=== PATIENT | female | born 2000 | race African-American/Black ===

== ENCOUNTER 2024-03-17 14:01 | Emergency (ER) | payer MEDICAID, OTHER ==
[~2024-03-17] VITALS: Ht 162.6 cm; Wt 64.3 kg
[2024-03-17 14:47] VITALS: BP 123/78; PULSE 68; RESP 20; TEMP 97.8; O2SAT 98
[2024-03-17] MEDS ORDERED: TOBRSUS34 LEFTEYE (15:09)
== END 2024-03-17 15:11 | disposition home or self-care (01) ==
LOC: ER 14:01
DX: H10.9 Unspecified conjunctivitis (principal)